=== PATIENT | female | born 1945 | race Caucasian/White ===

== ENCOUNTER 2024-04-02 11:27 | Emergency (ER) | payer MEDICARE, MEDICAID, SELFPAY ==
--- NOTE | 2024-04-02 11:40 | PC.NURSE ---
PT'S DAUGHTER STATING THAT PT'S TEMP WAS 106.8 AND TEMP 101.3
[2024-04-02 11:45] VITALS: BP 164/81; PULSE 91; RESP 16; TEMP 38.5; O2SAT 96
[2024-04-02 11:47] VITALS: BMI 32.9
--- NOTE | 2024-04-02 11:50 | XR_ITS ---
Examination: PA lateral chest 2 views TECHNIQUE: Upright PA lateral chest 2 views Exam date and time: April 02, 2019 5002 hours Comparison 12/02/2022 INDICATIONS: Coughing fever beginning 2 days ago. FINDINGS: Significant bilateral lung opacity Normal heart size Reduced inspiratory effort IMPRESSION: Significant bilateral pneumonia
--- NOTE | 2024-04-02 11:51 | PD.EDRME ---
Rapid Medical Screening Exam RME Arrival date/time: 04/02/24 11:27 78-year-old female with positive sick contacts at home presents emergency department complaints of cough and congestion and fever Patient was seen by PCP referred to the ER for further evaluation Chief Complaint: Fever Vital signs: Vital Signs Temperature 101.3 F H 04/02/24 11:45 Pulse Rate 91 04/02/24 11:45 Respiratory Rate 16 04/02/24 11:45 Blood Pressure 164/81 H 04/02/24 11:45 Pulse Oximetry (%) 96 04/02/24 11:45 Oxygen Delivery Method Room Air 04/02/24 11:45
[2024-04-02 12:10] VITALS: TEMP 38.5
[2024-04-02] MEDS: ACETAMINOPHEN 500 MG TABLET 1000 MG PO (12:10)
[2024-04-02 13:03] LABS: Basophils % (Auto) 0 % (0-2.5); Eosinophils # (Auto) 0.1 Thou/mm3 (0.0-0.5); Eosinophils % (Auto) 1 % (0-10); Hematocrit 38.4 % (36.0-46.0); Hemoglobin 12.9 g/dL (12.0-16.0); Immature Granulocytes % (Auto) 1 % (0-0); Immature Granulocytes Auto 0.05 Thou/mm3 (0.00-0.00); Lymphocytes # (Auto) 0.5 Thou/mm3 (1.0-4.8); Lymphocytes % (Auto) 5 % (10-50); Mean Corpuscular HGB Conc 33.6 g/dl (31.0-37.0); Mean Corpuscular Hemoglobin 30.5 pg (25.0-35.0); Mean Corpuscular Volume 91 fL (80-100); Monocytes # (Auto) 0.6 Thou/mm3 (0.0-0.8); Monocytes % (Auto) 6 % (0-12); Neutrophils # (Auto) 8.7 Thou/mm3 (1.8-7.7); Neutrophils % (Auto) 88 % (37-80); Nucleated Red Blood Cell % 0 /100 WBC (0); Platelet Count 196 Thou/mm3 (140-440); RDW Standard Deviation 42.7 fL (36.4-46.3); Red Blood Count 4.23 Miln/mm3 (4.00-5.20); White Blood Count 9.9 Thou/mm3 (3.6-11.0)
[2024-04-02 13:21] LABS: Alanine Aminotransferase 15 U/L (10-49); Albumin, Serum 4.4 gm/dL (3.4-4.8); Albumin/Globulin Ratio 1.2 (1.2-2.2); Alkaline Phosphatase 71 U/L (46-116); Anion Gap 10 (7-16); Aspartate Amino Transferase 22 U/L (0-34); BUN/Creatinine Ratio 18 Ratio (12-20); Bilirubin,Total 1.1 mg/dL (0.3-1.2); Blood Urea Nitrogen 21 mg/dL (9-23); Calcium 9.4 mg/dL (8.3-10.6); Calcium (Corrected) 9.4 mg/dL (8.5-10.1); Carbon Dioxide 24.4 mMol/L (20.0-31.0); Chloride 102 mMol/L (98-107); Creatinine (Component) 1.2 mg/dL (0.6-1.3); Estimated Creatinine Clearance 38.3 mL/min (>60); Globulin 3.6 gm/dL (2.3-3.5); Glucose 114 mg/dL (74-106); Osmolality,Calculated 275 (275-295); Sodium 136 mMol/L (136-145); eGFR 46 See Note
[2024-04-02 13:27] LABS: Procalcitonin 0.11 ng/ml (0.0-0.49)
[2024-04-02 15:52] VITALS: BP 134/73; PULSE 82; RESP 20; TEMP 36.9; O2SAT 100
--- NOTE | 2024-04-02 16:18 | PD.EDADULT ---
ED General RME/HPI General Chief complaint: Fever Stated complaint: FEVER SINCE LAST NIGHT, DISORIENTED TODAY Time Seen by Provider: 04/02/24 15:37 Arrival date/time: 04/02/24 11:27 CC: Cough fever HPI sent from the PCP for further evaluation. HPI daughter who lives with the patient states the patient has had an increased cough over the past 2 to 3 days with a fever in the last 24 hours no other family members are ill with similar symptoms. Currently patient denies chest pain shortness of breath or difficulty breathing. And assessed at 1619. RME / HPI RME / HPI narrative: 04/02/24 11:27 78-year-old female with positive sick contacts at home presents emergency department complaints of cough and congestion and fever Patient was seen by PCP referred to the ER for further evaluation Related Data Previous Rx's ?Medication ?Instructions ?Recorded ipratropium bromide 21 mcg (0.03 2 spray intranasal BID #30 mL 12/08/18 %) nasal spray loratadine 10 mg tablet (Allergy 10 mg PO QDAY allergy symptoms #30 12/08/18 Relief (loratadine)) tabs azithromycin 250 mg tablet See Rx Instructions PO .COMPLEX #6 04/02/24 tabs guaifenesin 200 mg/5 mL oral liquid 200 mg (5 mL) PO Q4H PRN cough 04/02/24 #118 mL prednisone 20 mg tablet See Taper PO BID 3 days #6 tabs 04/02/24 Allergies Allergy/AdvReac Type Severity Reaction Status Date / Time Cephalosporins Allergy Severe Anaphylaxis Verified 04/02/24 11:35 ciprofloxacin Allergy Severe rash Verified 04/02/24 11:35 clindamycin Allergy Severe Anaphylaxis Verified 04/02/24 11:35 clotrimazole [From Lotrimin] Allergy Severe Anaphylaxis Verified 04/02/24 11:37 doxycycline Allergy Severe Anaphylaxis Verified 04/02/24 11:37 levofloxacin [From Levaquin] Allergy Severe tingling Verified 04/02/24 11:35 hands mupirocin Allergy Severe Anaphylaxis Verified 04/02/24 11:37 nitrofurantoin Allergy Severe Anaphylaxis Verified 04/02/24 11:37 [From Macrobid] Penicillins Allergy Severe RASH Unverified 04/02/24 11:35 Sulfa (Sulfonamide Allergy Severe DIFF Unverified 04/02/24 11:35 Antibiotics) BREATHING fluticasone furoate AdvReac Severe DIZZINESS Verified 04/02/24 11:35 vilanterol AdvReac Severe DIZZINESS Verified 04/02/24 11:35 Review of Systems Review of Systems Narrative Review of Systems: GEN: + fever, no chills, no weight loss EYES: No discharge, no visual changes, no pain HEENT: No ear pain, no congestion, no sore throat PULM: No shortness of breath, + cough, no congestion CV: No chest pain, no dyspnea on exertion, no palpitations GI: No nausea, no vomiting, no diarrhea, no pain, no constipation : No frequency, no urgency, no dysuria MUSC/SKEL: No joint pain, no back pain SKIN: No rash PSYCH: No hallucinations, no depression HEME/LYMPH: No easy bleeding or bruising tendencies NEURO: No weakness, no headache Past Medical History Past Medical History CARDIAC: Positive Hypertension; Negative Congestive Heart Failure RESPIRATORY: Negative Chronic Obstructive Pulmonary Disease (COPD) GENITOURINARY: Negative Renal Disease ENDOCRINE: Positive Hypothyroidism; Negative Diabetes Mellitus Type 1 or Diabetes Mellitus Type 2 Social History SMOKING STATUS: Never smoker ED Exam Narrative Physical exam: [General: Not in any acute distress Head normocephalic HEENT: Eyes: Pupils are PERRLA EOMs intact within acceptable limits Neck is supple nontender Chest equal chest rise nontender to palpation Respiratory: Clear to auscultation no wheezes crackles or rubs CV: Rate rhythm is regular no murmurs rubs or clicks Abdomen is soft nontender no masses positive bowel sounds all 4 quadrants Back: No CVA tenderness no spinous process tenderness from cervical spine thoracic and lumbar spine Skin: Intact no petechiae rash induration ulceration or crepitus Extremities: Moving all extremity against resistance cap refill less than 2 seconds neurosensory intact. No lower extremity edema. Neuro: Awake alert oriented x3 Glascow coma 15 no focal deficits] Course Quality Measures none Orders Category Date Time Status Bedside COVID-19 Antigen Test NOW Care 04/02/24 11:50 Active Bedside Influenza A&B Antigen Test NOW Care 04/02/24 11:50 Completed XR chest 2V Stat Exams 04/02/24 11:50 Completed Blood Culture (Lab) Stat Lab 04/02/24 12:35 Received CBC Stat Lab 04/02/24 12:35 Completed Comprehensive Metabolic Panel Stat Lab 04/02/24 12:35 Completed Lactate (Lactic Acid) Stat Lab 04/02/24 12:35 Completed Procalcitonin Stat Lab 04/02/24 12:35 Completed Urinalysis Stat Lab 04/02/24 11:50 Ordered Urine Culture Stat Lab 04/02/24 11:50 Ordered Acetaminophen Tab [Tylenol ES Tab] Med 04/02/24 11:51 Discontinued 1,000 mg PO X1 ONE Vital Signs Vital signs: Vital Signs Temperature 101.3 F H 04/02/24 11:45 Pulse Rate 91 04/02/24 11:45 Respiratory Rate 16 04/02/24 11:45 Blood Pressure 164/81 H 04/02/24 11:45 Pulse Oximetry (%) 96 04/02/24 11:45 Oxygen Delivery Method Room Air 04/02/24 11:45 [facility] Patient data External records reviewed:: [facility] previous records Clinical information provided by:: patient and family Social determinants that could affect healthcare access:: none Patient has the following chronic illnesses:: None How is presenting disease/condition affected by chronic disease/condition?: uneffected by Evaluation data The following diagnostics were reviewed and interpreted by me:: lab results and radiology exam(s) Lab and/or radiology exams considered but not ordered:: CBC shows no leukocytosis anemia thrombocytopenia CMP shows no significant electrolyte imbalances renal impairment transaminitis or T. bili elevation. Chest x-ray shows bilateral pneumonia. Lactic acid is negative Pro-Rufino is negative Interpretation Summary: Bilateral pneumonia. The patient has oxygen saturations of 100% and resting with a persistent dry nonproductive cough she is afebrile after Tylenol. Speaking in full sentences not in shortness of breath with abatement of the fever due to antipyretics no leukocytosis I am elected to discharge the patient on antibiotics that the patient does not have an allergy to cough medicine and steroids. Family members were advised to watch her closely in the next 48 to 72 hours if there is worsening of symptoms return her to the emergency room for reevaluation. Medications Medications considered but not ordered:: None Medication administrations:: Medication Administration History Discontinued Medications Acetaminophen (Acetaminophen 500 Mg Tablet) 1,000 mg PO X1 ONE Stop: 04/02/24 11:52 Last Admin: 04/02/24 12:10 Dose: 1,000 mg Documented By: None Consultations Consultation(s) initiated? (list below): No Diagnosis Differential Diagnosis ED Complaint MDM: Pneumonia URI sepsis Most likely diagnosis given after review of the tests above:: Pneumonia Admission Indicated Admission indicated?: not indicated Explain why admission is indicated or not indicated:: Stable for close outpatient follow-up Admission Request Was there a request for admission?: No Disposition Plan Disposition Plan: Discharge Discharge Attestation Discharge Attestation: The patient and all family members were given an opportunity to ask questions and understood the discharge instructions. Discharge instructions specifically effects, indications for sooner follow up or return to the emergency department, and the expected course of current diagnosis. Patient condition: Stable Medical Decision Making Differential Diagnosis Differential Diagnosis: Pneumonia URI sepsis Lab Data 04/02/24 12:35 04/02/24 12:35 Labs: Lab Results 04/02/24 Range/Units 12:35 WBC 9.9 (3.6-11.0) Thou/mm3 RBC 4.23 (4.00-5.20) Miln/mm3 Hgb 12.9 (12.0-16.0) g/dL Hct 38.4 (36.0-46.0) % MCV 91 (80-100) fL MCH 30.5 (25.0-35.0) pg MCHC 33.6 (31.0-37.0) g/dl RDW Std Deviation 42.7 (36.4-46.3) fL Plt Count 196 (140-440) Thou/mm3 Neut % (Auto) 88 H (37-80) % Lymph % (Auto) 5 L (10-50) % [place] % (Auto) 6 (0-12) % Eos % (Auto) 1 (0-10) % Baso % (Auto) 0 (0-2.5) % Neut # (Auto) 8.7 H (1.8-7.7) Thou/mm3 Lymph # (Auto) 0.5 L (1.0-4.8) Thou/mm3 [place] # (Auto) 0.6 (0.0-0.8) Thou/mm3 Eos # (Auto) 0.1 (0.0-0.5) Thou/mm3 Baso # (Auto) 0.0 (0.0-0.2) Thou/mm3 Immature Gran # (Auto) 0.05 H (0.00-0.00) Thou/mm3 Absolute Nucleated RBC 0.00 (0.00-0.00) Thou/mm3 Immature Gran % 1 H (0-0) % Nucleated RBC % 0 (0) /100 WBC Sodium 136 (136-145) mMol/L Potassium 4.0 (3.4-5.1) mMol/L Chloride 102 (98-107) mMol/L Carbon Dioxide 24.4 (20.0-31.0) mMol/L Anion Gap 10 (7-16) BUN 21 (9-23) mg/dL Creatinine 1.2 (0.6-1.3) mg/dL Estim Creat Clear Calc 38.3 L (>60) mL/min eGFR 46 L (60 - ) See Note BUN/Creatinine Ratio 18 (12-20) Ratio Glucose 114 H (74-106) mg/dL Calculated Osmolality 275 (275-295) Lactic Acid 2.0 (0.4-2.0) mMol/L Calcium 9.4 (8.3-10.6) mg/dL Corrected Calcium 9.4 (8.5-10.1) mg/dL Total Bilirubin 1.1 (0.3-1.2) mg/dL AST 22 (0-34) U/L ALT 15 (10-49) U/L Alkaline Phosphatase 71 (46-116) U/L Total Protein 8.0 (5.7-8.2) gm/dL Albumin 4.4 (3.4-4.8) gm/dL Globulin 3.6 H (2.3-3.5) gm/dL Albumin/Globulin Ratio 1.2 (1.2-2.2) Procalcitonin 0.11 (0.0-0.49) ng/ml Discharge Plan Plan Patient Disposition: HOME (Self Care) Patient condition on transfer: Stable Prescriptions/Referrals Prescriptions/Med Rec: New azithromycin 250 mg tablet See Rx Instructions .ROUTE .COMPLEX Qty: 6 0RF Rx Instructions: For 250 mg dose pack: take 500 mg today (day 1), then 250 mg for 4 days (days 2-5) prednisone 20 mg tablet See Taper PO BID 3 Days Qty: 6 0RF Taper: Prednisone Taper 20 mg DAILY for 2 Days and 0 Hour 10 mg DAILY for 2 Days and 0 Hour 5 mg DAILY for 7 Days and 0 Hour guaifenesin 200 mg/5 mL liquid 200 mg PO Q4H PRN (Reason: cough) Qty: 118 0RF No Action loratadine [Allergy Relief (loratadine)] 10 mg tablet 10 mg PO QDAY Qty: 30 3RF ipratropium bromide 0.03 % spray,non-aerosol 2 spray INTRANASAL BID Qty: 30 0RF Rx Instructions: administer into each nostril; wait 30 seconds between sprays Referrals: Rodrigo Bee DO [Primary Care Provider] - In 1 week Problem List Clinical Impression: Pneumonia Patient/Caregiver Discharge Instructions Education Materials: ED Pneumonia (Adult) Additional Instructions: Take the medications until completely gone. Follow-up in 2 to 3 days if there is a worsening of symptoms in spite of the medications return immediately for further evaluation. Print Language: Belarusian Stand Alone Forms: Mary Grace Award Info., Patient Portal Info Letter, Work/School Release PA/SOLE LEVELER MACHINE Supervising Physician PA/SOLE LEVELER MACHINE Supervising Physician: Alberto Moore ENP
[2024-04-02 16:26] VITALS: BP 172/80; PULSE 85; RESP 17; TEMP 36.8; O2SAT 100
--- NOTE | 2024-04-02 16:46 | PC.NURSE ---
pt refusing rectal temp at this time; pt educated on importance of taking temp rectally; per pt, I'm ok; I don't want that. made aware.
[2024-04-02 16:52] VITALS: TEMP 36.8
[2024-04-02 16:55] VITALS: BP 167/56; PULSE 81; RESP 19; TEMP 36.9; O2SAT 99
== END 2024-04-02 17:19 | disposition home or self-care (01) ==
PROVIDERS: Nurse Practitioner Primary Care; Emergency Provider Emergency Medicine; PCP Family Medicine
DX: J18.9 Pneumonia, unspecified organism (principal)
CPT/HCPCS: 36415; 71046; 80053; 81001; 83605; 84145; 85025; 87040; 87086; 87400; 87811; 99283; A9270